=== PATIENT | female | born 1945 | race Caucasian/White ===

== ENCOUNTER 2018-09-12 11:29 | Emergency (ER) | payer MEDICARE ==
[~2018-09-12] VITALS: Ht 167.6 cm; Wt 80.3 kg
[2018-09-12 11:31] VITALS: BP 138/88
[2018-09-12] MEDS ORDERED: DELTASONE20 M1 PO (12:16)
== END 2018-09-12 12:21 | disposition home or self-care (01) ==
LOC: ED 11:29
DX: L27.0 Generalized skin eruption due to drugs and medicaments taken internally (principal); T44.995A Adverse effect of other drug primarily affecting the autonomic nervous system, initial encounter; F17.200 Nicotine dependence, unspecified, uncomplicated; Z90.49 Acquired absence of other specified parts of digestive tract; Y92.89 Other specified places as the place of occurrence of the external cause

== ENCOUNTER → 2020-04-02 | Outpatient (CLI) | payer MEDICARE ==
[~2020-04-02] MED LIST: DELTASONE20 M1 PO
== END | disposition home or self-care (01) ==
LOC: MAMMO 14:00
DX: Z12.31 Encounter for screening mammogram for malignant neoplasm of breast (principal); C55 Malignant neoplasm of uterus, part unspecified; C53.8 Malignant neoplasm of overlapping sites of cervix uteri; R11.2 Nausea with vomiting, unspecified; Z51.11 Encounter for antineoplastic chemotherapy; Z45.2 Encounter for adjustment and management of vascular access device

== ENCOUNTER → 2021-05-05 | Outpatient (CLI) | payer MEDICARE | END | disposition home or self-care (01) | LOC: MRI 13:00 | PROVIDERS: ATTEND Orthopaedic Surgery | DX: S32.591A Other specified fracture of right pubis, initial encounter for closed fracture (principal); S32.10XA Unspecified fracture of sacrum, initial encounter for closed fracture; M16.0 Bilateral primary osteoarthritis of hip; R60.0 Localized edema; X58.XXXA Exposure to other specified factors, initial encounter; Y93.89 Activity, other specified; Y92.89 Other specified places as the place of occurrence of the external cause; Y99.8 Other external cause status ==

== ENCOUNTER → 2021-05-14 | Outpatient (CLI) | payer MEDICARE | END | disposition home or self-care (01) | LOC: RAD 08:57 | PROVIDERS: ATTEND Orthopaedic Surgery | DX: M85.89 Other specified disorders of bone density and structure, multiple sites (principal); S32.591D Other specified fracture of right pubis, subsequent encounter for fracture with routine healing; Z78.0 Asymptomatic menopausal state; X58.XXXD Exposure to other specified factors, subsequent encounter ==

== ENCOUNTER 2023-07-12 09:36 | Emergency (ER) | payer MEDICARE ==
[~2023-07-12] VITALS: Ht 157.4 cm; Wt 74.4 kg
[2023-07-12 09:43] VITALS: BP 141/69
[2023-07-12] MEDS ORDERED: PREDNISONE50 MG PO (11:43)
== END 2023-07-12 11:57 | disposition home or self-care (01) ==
LOC: ED 09:36
DX: L25.9 Unspecified contact dermatitis, unspecified cause (principal); Z79.899 Other long term (current) drug therapy; Z90.49 Acquired absence of other specified parts of digestive tract

== ENCOUNTER 2023-07-23 09:31 | Emergency (ER) | payer MEDICARE ==
[~2023-07-23] VITALS: Ht 157.4 cm; Wt 74.4 kg
[~2023-07-23 09:31] MED LIST changes: +PREDNISONE50 MG PO
[2023-07-23 09:53] VITALS: BP 141/74
[2023-07-23] MEDS ORDERED: LEVOTHYROXINE125 MCG PO (09:54)
[2023-07-23] MEDS ORDERED: MELOXICAM15 MG PO (09:55)
[2023-07-23] MEDS ORDERED: VITAMIN D350 MC2 PO (09:55)
[2023-07-23] MEDS ORDERED: ESOMEPRAZOLE MA40 M1 PO (09:55)
[2023-07-23] MEDS ORDERED: PREDNISONE20 M1 PO (10:51)
== END 2023-07-23 11:09 | disposition home or self-care (01) ==
LOC: ED 09:31
DX: L25.9 Unspecified contact dermatitis, unspecified cause (principal); E78.00 Pure hypercholesterolemia, unspecified; Z90.49 Acquired absence of other specified parts of digestive tract; Z98.890 Other specified postprocedural states